=== PATIENT | female | born 1995 ===

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

== ENCOUNTER 2017-03-08 11:22 | Emergency (ER) | payer OTHER ==
[2017-03-08 12:43] VITALS: BP 102/67
--- NOTE | 2017-03-08 13:29 | UC ---
Abdominal Pain Female HPI - HPI Summary HPI Summary: 21 year old female with n/v/d since this AM. no blood. no vomit. mild abdominal discomfort in the epigastric area. no stabbing abdominal pain. LMP 10 days ago Vomiting started 0200 today, pt ;has had 5 episodes, last episode was 0800. Three episodes of diarrhea started 0300, last was 0400. Cold and cough since yesterday. Pt has nausea now. No vomit since then. Nausea only Sx left. [ End ] - History of Current Complaint Chief Complaint: UCGI Stated Complaint: VOMITING,COLD SYMPTOMS Time Seen by Provider: 03/08/17 13:10 Hx Obtained From: Patient Hx Last Menstrual Period: last week ?: No Onset/Duration: Sudden Onset Timing: Intermittent Episodes Lasting: Severity Initially: Moderate Severity Currently: None Radiates: No Associated Signs and Symptoms: Positive: Nausea, Vomiting, Diarrhea Allergies/Adverse Reactions: Allergies Allergy/AdvReac Type Severity Reaction Status Date / Time pollen Allergy Congestion Uncoded 03/08/17 12:43 PMH/Surg Hx/FS Hx/Imm Hx Previously Healthy: Yes - Surgical History Surgical History: None - Family History Known Family History: Negative: Cardiac Disease, Hypertension - Social History Occupation: Student Lives: Dormitory/Roommates Alcohol Use: None Substance Use Type: None Smoking Status (MU): Never Smoked Tobacco Review of Systems Gastrointestinal: Vomiting, Diarrhea, Nausea All Other Systems Reviewed And Are Negative: Yes Physical Exam Triage Information Reviewed: Yes Appearance: Well-Appearing, No Pain Distress, Well-Nourished Vital Signs: Initial Vital Signs Temp 97.8 F 03/08/17 12:32 Pulse 69 03/08/17 12:32 Resp 18 03/08/17 12:32 BP 102/67 03/08/17 12:32 Pulse Ox 100 03/08/17 12:32 Vital Signs Reviewed: Yes Eye Exam: Normal ENT Exam: Normal Dental Exam: Normal Neck exam: Normal Neck: Positive: 1 Respiratory Exam: Normal Cardiovascular Exam: Normal Abdominal Exam: Normal Abdomen Description: Positive: Nontender, Other: - minimal epigastric tenderness Musculoskeletal Exam: Normal Neurological Exam: Normal Psychological Exam: Normal Skin Exam: Normal Abd Pain Female Course/Dx - Course Course Of Treatment: Go to ED if any concerns - Differential Dx/Diagnosis Differential Diagnosis: Irritable Bowel Syndrome, Other - gastroenteritis Provider Diagnoses: Viral Gastroenteritis Discharge - Discharge Plan Condition: Good Disposition: HOME Prescriptions: Ondansetron ODT TAB* [Zofran 4 MG Odt TAB*] 4 mg PO Q6H PRN #10 tab.odt PRN Reason: Nausea Patient Education Materials: Acute Nausea and Vomiting (ED) Forms: *School Release Referrals: Non Staff,Doctor [Primary Care Provider] - If Needed
== END 2017-03-08 14:02 | disposition home or self-care (01) ==
LOC: UCCORT 11:22
DX: A08.4 Viral intestinal infection, unspecified (principal); J30.1 Allergic rhinitis due to pollen
CPT/HCPCS: 99212; G0463